=== PATIENT | female | born 1985 | race Caucasian/White ===

== ENCOUNTER 2017-08-15 13:03 | Emergency (ER) | payer SELFPAY ==
[2017-08-15 13:35] VITALS: BP 137/78; BMI 34.0
--- NOTE | 2017-08-15 14:04 | DR.GENAD ---
HPI - PCP Primary Care Physician: NFD - HPI Comment HPI Comment: PAIN GOING DOWN LEFT ABDOMEN. URINARY FREQUENCY TODAY. NO FEVER. PAIN WORSE TODAY. - Complaint/Symptoms Chief Complaint Doctors Comments: FLANK PAIN TIMES 5 DAYS. Chief Complaint:: LEFT FLANK PAIN THAT RADIATES AROUND TO FRONT OF ABD. ALSO HAS SENSATION OF FREQUENCY AND NOT EMPTYING THE BLADDER. Self Treatment fo Chief Complaint: DRINKING LOTS OF WATER - Nurses notes reviewed Nurses Notes Review: Yes - Source History Provided: Patient - Mode of Arrival Mode of Arrival: Ambulatory - Timing Onset of Chief Complaint: 08/10/17 Came on: Suddenly - Duration Duration: Constant Duration: Days - Severity Severity: Moderate PMH - PMH Past Medical History: No Past Surgical History: Yes Surgical History: Appendectomy, Cholecystectomy, Hysterectomy Past Surgical History Comment: HERNIA - Family History History of Family Medical Conditions: Yes Family Medical History: Diabetes Mellitus Family Medical History Comment: STROKE - Social History Type of Tobacco Use: None Alcohol Use: None Do you use any recreational Drugs:: No Lives With: Family Lives Where: Home - infectious screening In the last 2 months have you had wt loss of >10#?: NO Have you had fever, night sweats or hemotysis?: No Have you traveled outside the country in the last 6 months?: No Isolation: Standard ROS - Review of Systems Constitutional: No Symptoms Reported. negative: Chills, Fever Eyes: No Symptoms Reported. negative: Eye Pain, Discharge ENTM: No Symptoms Reported. negative: Ear Pain, Nose Discharge, Nose Congestion , Throat Pain Respiratoy: No Symptoms Reported. negative: Productive Cough, Short of Breath, Wheezing, Hemoptysis Cardiovascular: No Symptoms Reported. negative: Chest Pain Gastrointestinal/Abdominal: No Symptoms Reported, Abdominal Pain, Nausea. negative: Vomiting Genitourinary: No Symptoms Reported, Frequency Neurological: No Symptoms Reported Musculoskeletal: No Symptoms Reported, Back Pain, Left, Back Integumentary: No Symptoms Reported Hematologic/Lymphatic: No Symptoms Reported Endocrine: No Symptoms Reported All Other Systems: Reviewed and Negative PE - Vital Signs Vitals: Temperature 97.9 F Pulse Rate 83 Respiratory Rate 18 Blood Pressure 137/78 O2 Sat by Pulse Oximetry 99 - General Limitations: No Limitations General Appearance: Alert - Head Head Exam: Normal Inspection - Eyes Eye exam: Normal Appearance - ENT ENT Exam: Normal External Ear Exam External Ear Exam: Normal External Inspection TM/Canal Exam: Bilateral Normal Nose Exam: Normal Nose Exam Mouth Exam: Normal Inspection Throat Exam: Normal Inspection - Neck Neck Exam: Trachea Midline - Chest Chest Inspection: Symmetric Chest Wall Rise - Respiratory Respiratory Exam: Normal Lung Sounds Bilat Respiratory Exam: Bilateral Clear to Auscultation - Cardiovascular Cardiovascular Exam: Regular Rate, Normal Rhythm, Normal Heart Sounds - Abdominal Exam Abdominal Exam: Normal Bowel Sounds, Soft. negative: Tenderness Abdominal Tenderness: LUQ, LLQ - Extremities Extremities Exam: Normal Inspection - Back Back Exam: (L) CVA Tenderness - Neurologic Neurological Exam: Alert - Psychiatric Psychiatric Exam: Normal Affect, Normal Mood - Skin Skin Exam: Normal Color MDM - Differential Diagnosis Differential Diagnosis: LEFT FLANK PAIN, UTI, KIDNEY STONE, MUSCULOSKELETAL PAIN Course - Treatment Treatment: SEE ORDERS. IM TORADOL IN ED. PAIN IMPROVING. - Reevaluation 1st: Improved - Education/Counseling Education/Counseling: Patient, Education Educated On: Treatment, Diagnosis, Needs for Follow Up ROR - Labs Reviewed Laboratory Results Reviewed?: Yes Result Diagrams: 08/15/17 14:22 08/15/17 14:22 Laboratory: 08/15/17 13:59 Urine,Clean Catch Urine Culture - Preliminary WBC 5.3 X10^3/uL (3.6-10.0) 08/15/17 14:22 RBC 3.98 X10^6/uL (3.5-5.4) 08/15/17 14:22 Hgb 12.2 g/dL (12.0-16.0) 08/15/17 14:22 Hct 34.3 % (36.0-47.0) L 08/15/17 14:22 MCV 86.3 fL (80.0-100.0) 08/15/17 14:22 MCH 30.6 pg (27.0-34.0) 08/15/17 14:22 MCHC 35.5 g/dL (33.0-35.0) H 08/15/17 14:22 RDW 12.2 % (11.6-16.5) 08/15/17 14:22 Plt Count 175 X10^3/uL (150.0-450.0) 08/15/17 14:22 MPV 9.4 fL (7.4-11.0) 08/15/17 14:22 Neut % (Auto) 67.2 % (42.0-75.0) 08/15/17 14:22 Lymph % (Auto) 21.6 % (21.0-51.0) 08/15/17 14:22 [place] % (Auto) 9.4 % (0.0-13.0) 08/15/17 14:22 Eos % (Auto) 1.3 % (0.9-2.9) 08/15/17 14:22 Baso % (Auto) 0.5 % (0.2-1.0) 08/15/17 14:22 Neut # (Auto) 3.6 x10^3/uL (2.2-4.8) 08/15/17 14:22 Lymph # (Auto) 1.2 X10^3/uL (1.3-2.9) L 08/15/17 14:22 [place] # (Auto) 0.5 x10^3/uL (0.3-0.8) 08/15/17 14:22 Eos # (Auto) 0.1 x10^3/uL (0.0-0.2) 08/15/17 14:22 Baso # (Auto) 0.0 X10^3/uL (0.0-0.1) 08/15/17 14:22 Absolute Nucleated RBC 0.0 /100WBC 08/15/17 14:22 Sodium 139 mmol/L (136-145) 08/15/17 14:22 Corrected Sodium TNP 08/15/17 14:22 Potassium 3.9 mmol/L (3.5-5.1) 08/15/17 14:22 Chloride 103 mmol/L (98-107) 08/15/17 14:22 Carbon Dioxide 28.1 mmol/L (21-32) 08/15/17 14:22 BUN 10 mg/dL (7-18) 08/15/17 14:22 Creatinine 0.74 mg/dL (0.55-1.02) 08/15/17 14:22 Est GFR (MDRD) Af Amer > 60 (>60) 08/15/17 14:22 Est GFR (MDRD) Non-Af > 60 (>60) 08/15/17 14:22 Glucose 96 mg/dL (65-99) 08/15/17 14:22 Calcium 8.4 mg/dL (8.5-10.1) L 08/15/17 14:22 Corrected Calcium TNP 08/15/17 14:22 Total Bilirubin 0.30 mg/dL (0.2-1.0) 08/15/17 14:22 AST 12 Units/L (15-37) L 08/15/17 14:22 ALT 14 Units/L (12-78) 08/15/17 14:22 Alkaline Phosphatase 78 Units/L (46-116) 08/15/17 14:22 Total Protein 7.9 g/dL (6.4-8.2) 08/15/17 14:22 Albumin 3.5 g/dL (3.4-5.0) 08/15/17 14:22 Globulin 4.4 g/dL (2.5-4.5) 08/15/17 14:22 Albumin/Globulin Ratio 0.8 Ratio (1.1-2.1) L 08/15/17 14:22 Amylase 26 Units/L (25-115) 08/15/17 14:22 Lipase 122 Units/L (73-393) 08/15/17 14:22 Specimen Type Clean catch urine 08/15/17 13:59 Urine Color Straw (YELLOW) 08/15/17 13:59 Urine Appearance Hazy (CLEAR) 08/15/17 13:59 Urine pH 7.0 (5.0 - 8.0) 08/15/17 13:59 Ur Specific [place] 1.010 (1.000-1.030) 08/15/17 13:59 Urine Protein 2+ (NEGATIVE) 08/15/17 13:59 Urine Glucose (UA) Negative (NEGATIVE) 08/15/17 13:59 Urine Ketones Negative (NEGATIVE) 08/15/17 13:59 Urine Occult Blood 2+ (NEGATIVE) 08/15/17 13:59 Urine Nitrite Negative (NEGATIVE) 08/15/17 13:59 Urine Bilirubin Negative (NEGATIVE) 08/15/17 13:59 Urine Urobilinogen Normal (NORMAL) 08/15/17 13:59 Ur Leukocyte Esterase 3+ (NEGATIVE) 08/15/17 13:59 Urine RBC 3-5 /HPF (NONE SEEN) 08/15/17 13:59 Urine WBC 20-30 /HPF (NONE SEEN) 08/15/17 13:59 Ur Squamous Epith Cells Negative /HPF (NEGATIVE) 08/15/17 13:59 Urine Bacteria Trace /HPF (NEGATIVE) 08/15/17 13:59 Ur Culture Indicated? Yes/culture set up 08/15/17 13:59 - XRAY XRAY Interpreted by: Radiologist XRAY Findings: REPORT DISCUSS WITH PATIENT. - Diagnosis Discharge Problem: Right flank pain UTI (urinary tract infection) Qualifiers: Urinary tract infection type: site unspecified Hematuria presence: without hematuria Qualified Code(s): N39.0 - Urinary tract infection, site not specified - Discharge Plan Disposition: 01 HOME, SELF-CARE Condition: Stable Prescriptions: Ibuprofen [MOTRIN TAB 600 MG *] 600 mg PO TID PRN #30 tab PRN Reason: Pain/Inflammation Sulfamethoxazole-Trimethoprim [BACTRIM DS TAB 800/160 MG *] 1 tab PO BID #20 tab - Follow ups/Referrals Follow ups/Referrals: NFD,None [Primary Care Provider] - 3 days - Instructions Instructions: Urinary Tract Infection, Adult, [id number], Flank Pain, Adult, [id number] Additional Instructions: RETURN TO ED IF WORSE.
[2017-08-15 14:17] LABS: BILIRUBIN,URINE NEGATIVE (NEGATIVE); BLOOD/HEMOGLOBIN,URINE 2+ (NEGATIVE); GLUCOSE, URINE NEGATIVE (NEGATIVE); KETONES,URINE NEGATIVE (NEGATIVE); LEUKOCYTE ESTERASE ,URINE 3+ (NEGATIVE); NITRITES,URINE NEGATIVE (NEGATIVE); PROTEIN,URINE 2+ (NEGATIVE); UROBILINOGEN,URINE NORMAL (NORMAL)
[2017-08-15 14:26] LABS: APPEARANCE,URINE HAZY (CLEAR); COLOR,URINE STRAW (YELLOW)
[2017-08-15 14:27] LABS: BACTERIA,URINE TRACE /HPF (NEGATIVE); SQUAMOUS EPITHELIAL CELL,UR NEGATIVE /HPF (NEGATIVE)
[2017-08-15 14:45] LABS: BASOPHILS % (AUTO) 0.5 % (0.2-1.0); EOSINOPHILS # (AUTO) 0.1 x10^3/uL (0.0-0.2); EOSINOPHILS % (AUTO) 1.3 % (0.9-2.9); HEMATOCRIT 34.3 % (36.0-47.0); HEMOGLOBIN 12.2 g/dL (12.0-16.0); LYMPHOCYTES # (AUTO) 1.2 X10^3/uL (1.3-2.9); LYMPHOCYTES % (AUTO) 21.6 % (21.0-51.0); MEAN CORPUSCULAR HEMOGLOBIN 30.6 pg (27.0-34.0); MEAN CORPUSCULAR HGB CONC 35.5 g/dL (33.0-35.0); MEAN CORPUSCULAR VOLUME 86.3 fL (80.0-100.0); MEAN PLATELET VOLUME 9.4 fL (7.4-11.0); MONOCYTES # (AUTO) 0.5 x10^3/uL (0.3-0.8); MONOCYTES % (AUTO) 9.4 % (0.0-13.0); NEUTROPHILS # (AUTO) 3.6 x10^3/uL (2.2-4.8); NEUTROPHILS % (AUTO) 67.2 % (42.0-75.0); PLATELET COUNT 175 X10^3/uL (150.0-450.0); RED BLOOD COUNT 3.98 X10^6/uL (3.5-5.4); RED CELL DISTRIBUTION WIDTH 12.2 % (11.6-16.5); WHITE BLOOD COUNT 5.3 X10^3/uL (3.6-10.0)
[2017-08-15 14:57] LABS: ALANINE AMINOTRANSFERASE 14 Units/L (12-78); ALBUMIN 3.5 g/dL (3.4-5.0); ALKALINE PHOSPHATASE 78 Units/L (46-116); AMYLASE 26 Units/L (25-115); ASPARTATE AMINO TRANSFERASE 12 Units/L (15-37); BLOOD UREA NITROGEN 10 mg/dL (7-18); CALCIUM 8.4 mg/dL (8.5-10.1); CARBON DIOXIDE 28.1 mmol/L (21-32); CHLORIDE 103 mmol/L (98-107); CREATININE 0.74 mg/dL (0.55-1.02); LIPASE 122 Units/L (73-393); SODIUM 139 mmol/L (136-145); TOTAL PROTEIN 7.9 g/dL (6.4-8.2); eGFR BLACK RACES > 60 (>60); eGFR NON BLACK RACES > 60 (>60)
[2017-08-15] MEDS ORDERED: TORADOL 60 MG VIAL IM ONE (14:57)
[2017-08-15] MEDS ORDERED: TORADOL 60 MG VIAL ONE (15:02)
--- NOTE | 2017-08-15 16:25 | CT ---
CT ABDOMEN AND PELVIS WITHOUT CONTRAST CLINICAL HISTORY: 32-year-old female with left flank pain and history of cervical cancer. COMPARISON: None. TECHNIQUE: Multiple contiguous computed tomographic axial images of the abdomen and pelvis were obtai denny without the use of oral or intravenous contrast. Images were reformatted in the coronal and sagit leroy planes. FINDINGS: The lung bases demonstrate no evidence of focal air-space opacification, pleural effusion, pneumothor ax, or suspicious pulmonary nodules. The imaged inferior mediastinum and heart are normal in appeara nce without evidence of pericardial effusion. The liver, gallbladder, pancreas, and spleen are within normal limits for noncontrast imaging. The adrenal glands and kidneys are normal bilaterally. There are no nephroureteral stones or perineph eva fluid collections. There is no evidence of hydroureteronephrosis and the ureters run in an unobst ructed course to a well distended urinary bladder. Status post hysterectomy. Two simple appearing left adnexal cyst, the largest measuring 2.6 x 3.0 x 3.4 cm with the 2nd measuring 1.9 x 1.8 x 1.8 cm. Right adnexa unremarkable. Status post appendectomy. The bowel is without obstruction or inflammation and there is no free flui d or free air within the peritoneal cavity. There are no pathologically enlarged lymph nodes in the abdomen or pelvis. The arteriovascular structures are within normal limits for a study without contrast. Soft tissues are normal. The osseous structures are intact without fracture or malalignment. IMPRESSION: 1. Simple appearing left adnexal cysts with the largest measuring up to 3.4 cm, correlation with ultr asound and follow-up with [employer] given history of cervical cancer. 2. No nephroureterolithiasis. 3. No other acute intra-abdominal or intrapelvic process. Reported By:
== END 2017-08-15 16:55 | disposition home or self-care (01) ==
LOC: ER 13:47
DX: N39.0 Urinary tract infection, site not specified (principal); R10.84 Generalized abdominal pain
CPT/HCPCS: 36415; 74176; 80053; 81001; 82150; 83690; 85025; 87086; 96372; 99282; 99283; J1885